=== PATIENT | male | born 1990 | race Caucasian/White ===

== ENCOUNTER 2019-11-07 20:57 | Emergency (ER) | payer BC, SELFPAY ==
[2019-11-07 21:09] VITALS: BP 133/80; PULSE 97; RESP 16; TEMP 36.7; O2SAT 97; BMI 30.2
--- NOTE | 2019-11-07 21:21 | ED_ITS ---
HPI - Wound/Laceration General: Chief Complaint: Wound/Laceration Stated Complaint: lac on finger Time Seen by Provider: 11/07/19 21:20 History of Present Illness: HPI narrative: Patient is a 29-year-old male comes to the ED with a laceration on left thumb. Patient says injury occurred approximately an hour before arriving here in the ED. Patient says he was skinning a deer with his knife and by accident cut the dorsal side of left thumb. Patient immediately put some clotting treatment on wound that was from his first-aid kit, bandaged it up and came here to the ED. It hurts to move his left thumb. He currently rates the pain a 7 out of 10. He has not taken any pain medications before coming to the ED. patient says he is up-to-date on his tetanus and has had it within the last 5 years. Associated symptoms: Denies chills, fever(s), nausea or vomiting Review of Systems Const: Denies: fever(s), chills or fatigue Eyes: Denies: change in vision or eye discomfort ENMT: Denies: throat pain, odynophagia, nasal discharge or nasal congestion Card: Denies: chest pain, palpitations, edema, swelling of feet/ankles, dyspnea on exertion or orthopnea Resp: Denies: dyspnea, productive cough or non-productive cough GI: Denies: abdominal pain, nausea, vomiting, diarrhea, constipation or hematochezia : Denies: flank pain, difficulty urinating, dysuria or hematuria Musc: Denies: neck pain, back pain or extremity swelling Skin/Breast: Reports: new lesions (laceration on left thumb); Denies: rash Neuro: Denies: headache(s), numbness in extremities or weakness in extremities Physical Exam Const: COMMON NORMALS: no acute distress, patient oriented x3, healthy appearing and alert GENERAL APPEARANCE: cooperative and comfortable HENMT: COMMON NORMALS: normocephalic HEAD & SCALP: normocephalic MOUTH: Normal oral and palatal mucosa present THROAT: posterior oropharynx normal and uvula midline Neck/C-Spine: COMMON NORMALS: supple GENERAL: Yes normal visual inspection Resp: COMMON NORMALS: normal respiratory effort, No retractions, No use of accessory muscles and clear to auscultation bilaterally AUSCULTATION: clear to auscultation bilaterally Cardio: COMMON NORMALS: regular rate, regular rhythm, S1 normal heart sound present, S2 normal heart sound present, No gallops present (Cardio), No clicks present (Cardio), No murmurs present (Cardio) and Peripheral pulses 2+ throughout RATE: regular rate RHYTHM: regular rhythm HEART SOUNDS: S1 normal heart sound present and S2 normal heart sound present PERIPHERAL PULSES: Peripheral pulses 2+ throughout GI: COMMON NORMALS: Normal to inspection, nondistended, normoactive bowel sounds present, Soft to palpation, non-tender and no masses PALPATION: Yes Soft to palpation : COMMON NORMALS: Yes no CVA tenderness BLADDER/KIDNEY EXAM: Yes no CVA tenderness Back/Pelvis: COMMON NORMALS: no CVA tenderness Extremity: LEFT UPPER EXTREMITY: Yes hand & digits Left hand and digits: Yes inspection (2 cm superficial linear laceration over dorsal side of left thumb.) and Yes neurovascular exam (Intact) Neuro: COMMON NORMALS: patient oriented x3 and moves all extremities SENSORIUM/ORIENTATION: Yes alert Skin: NARRATIVE SKIN EXAM: Patient has a linear superficial laceration on left thumb. Approximately 2cm GENERAL SKIN EXAM: dry skin Procedures Laceration Laceration 1: Site: hand (thumb) Side (If applicable): left Size (cm): 2 Description: linear and clean Depth: simple, single layer Local Anesthetic: lidocaine 1% Amount of anesthesia used (mL): 10 Pre-repair: irrigated extensively (With normal saline cleaned with alcohol swab.) Skin layer closed with: nylon Size (cm): 4-0 Number of sutures: 8 Technique: simple, interrupted Course Vital Signs: Vital signs: Vital Signs Temperature 98.1 F 11/07/19 21:09 Pulse Rate 68 11/07/19 22:28 Respiratory Rate 18 11/07/19 22:28 Blood Pressure 133/80 11/07/19 21:09 Pulse Oximetry 99 11/07/19 22:28 MDM - Wound/Laceration MDM Narrative: Medical decision making narrative: Patient is a 29-year-old male comes to the ED with a laceration to left thumb. X-ray was performed the left hand showed no acute fractures or foreign body seen. Local lidocaine 1% was used and laceration was irrigated with normal saline and cleaned with alcohol swab. 8 sutures were placed to close laceration. Patient was put on a prescription of cephalexin as prophylactic treatment. He was instructed on how to care for sutures and told to have them removed in 10 days. Patient understood and agreed with plan. Imaging Data^: Xray Ortho: Attestation: I personally reviewed and interpreted this imaging study as follows: My impression: Left hand x-ray showed no acute fractures or findings. No foreign body seen. Discharge Plan Discharge Patient Disposition: Home Clinical Impression: Laceration Condition: Stable Prescriptions: New cephalexin 500 mg capsule 500 mg PO TID 5 Days Qty: 15 RF: 0 Discharge Orders: Discharge Order (Routine); Ordered 11/07/19 Ordered By: [place] Rice Referrals: Oskar Alarcon MD [Primary Care Provider] - Discharge Diet: Regular Discharge Activity: Limit activity as instructed Patient Instructions: Finger Laceration (ED) Activity Restrictions/Additional Instructions: Take full course of antibiotics as prescribed. Keep laceration site clean and dry for the next 48 hours. Keep some straightening do not bend it for the next 2 to 3 days to help wound heal. Then after that you can clean and re-bandage daily. You can apply triple antibiotic ointment as well. Watch for signs of infection such as redness, warmth, increased tenderness and puslike drainage. If you see the signs of infection return to the ED, urgent care or PCP for reevaluation. call your PCP to schedule a follow-up appointment for reevaluation and suture removal in about 10 days. Continue taking all home meds. Follow discharge plans as discussed. You can return to the ED if symptoms worsen. Discharge Date/Time: 11/07/19 22:29 Coding Level of Care Code ED Inspector Glass Or Mirror for Irving Coto Exam Comprehensive
--- NOTE | 2019-11-07 21:27 | XRR_ITS ---
PROCEDURE INFORMATION: Exam: XR Right Hand Exam date and time: 11/07/2019 9:50 PM Age: 29 years old Clinical indication: Pain; Finger(s); Patient HX: Left thumb lac; Additional info: Thumb injury TECHNIQUE: Imaging protocol: XR Right hand. Views: 3 or more views. COMPARISON: No relevant prior studies available. FINDINGS: Bones/joints: Normal. Soft tissues: Normal. XR/XR hand RT min 3V* [id number] IMPRESSION: No acute findings.
[2019-11-07] MEDS: HYDROcodone-acetaminophen 7.5-325 mg Tablet 1 TAB PO (21:31)
[2019-11-07] MEDS: cephALEXin 500 mg Capsule PO (21:48)
[2019-11-07] MEDS: bacitracin ointment Pkt 1 EACH TOPICAL (22:18)
--- NOTE | 2019-11-07 22:21 | PC.NURSE ---
dressing applied tp L thump using 4x4 and 1 inch kerlex as a wrap. All SMCs intact prior and post procedure. Pt tolerated well.
[2019-11-07 22:28] VITALS: PULSE 68; RESP 18; O2SAT 99
--- NOTE | 2021-07-28 | XR_ITS ---
WS: [id number] Exam: [place] [id number] Date/Time of Exam: 07/28/2021 12:50 PM Reason For Exam: orif humerus AP and lateral intraoperative C-arm images of the midshaft of the left humerus are submitted. A midshaft fracture is stabilized with plate and screw fixation in good alignment for healing. Postop erative changes in the adjacent soft tissues. No other significant finding on this limited series.
== END 2019-11-07 22:29 | disposition home or self-care (01) ==
PROVIDERS: Emergency Provider Physician Assistant; PCP Family Medicine
DX: S61.012A Laceration without foreign body of left thumb without damage to nail, initial encounter (principal); W26.0XXA Contact with knife, initial encounter
CPT/HCPCS: 12001; 12345; 73130; 99282; 99283